=== PATIENT | female | born 1945 | race Caucasian/White ===

== ENCOUNTER 2023-01-16 07:35 | Emergency (ER) | payer MEDICARE, SELFPAY ==
[2023-01-16] VITALS (16 sets, daily range): BP systolic 123–158; BP diastolic 65–84; PULSE 75–78; RESP 16; TEMP 36.9; O2SAT 95–100
--- NOTE | ~2023-01-16 | CT_ITS ---
EXAMINATION: CT abdomen pelvis w con DATE: 01/16/2023 10:55 INDICATION: Left lower quadrant abdominal pain, nausea. Abdominal bloating. Diminished appetite. TECHNIQUE: Computed tomography (CT) of the abdomen and pelvis was performed with 100 CC Omnipaque 350 intravenous contrast. Automated exposure control and iterative reconstruction technique were employe d. Exam dose: 988.07 mGy-cm total exam DLP. COMPARISON: None. FINDINGS: Minimal discoid atelectasis at the base of the lingula and posteromedial right lower lobe. No infiltrate or consolidation at the lung bases. Normal heart size. No pericardial or pleural effusion. 13 x 18 mm circumscribed cystic lesion in the region of pancreatic head. The pancreas is otherwise un remarkable, without calcification or ductal dilatation. No bile duct dilatation. No hepatic or splenic space-occupying mass lesion or splenomegaly. Suspected cholelithiasis. Recommend ultrasound correlation. No gallbladder wall thickening or pericho lecystic fluid or fat stranding. Normal morphology of the adrenal glands. No renal mass lesion or urinary tract calculus or hydroureteronephrosis. The urinary bladder, uterus and adnexal areas are unremarkable. There is atherosclerotic calcification of the abdominal aorta but no aneurysm. No intraperitoneal or retroperitoneal or pelvic mass lesion or adenopathy or ascites. Normal appendix. There are numerous diverticula of the sigmoid colon; no CT evidence of diverticulitis. No bowel obstr uction, bowel wall thickening, pneumatosis or intraperitoneal free air. There are compression fracture deformities, likely chronic, T12, L1 and to a lesser extent L3. Degenerative changes of the lower thoracic and lumbar spine including severe degenerative disc diseas e at L4-5 and L5-S1. No suspicious osteolytic or osteoblastic lesions are noted. IMPRESSION: 13 x 18 mm circumscribed cyst at the pancreatic head, most likely benign. Consider [address] imaging Suspected cholelithiasis; consider gallbladder ultrasound examination Diverticulosis of the sigmoid colon; no evidence of diverticulitis Normal appendix Reviewed, dictated and finalized at [facility]. Reviewed, dictated and finalized at [facility]. IMPRESSION: 13 x 18 mm circumscribed cyst at the pancreatic head, most likely benign. Consider [address] imaging Suspected cholelithiasis; consider gallbladder ultrasound examination Diverticulosis of the sigmoid colon; no evidence of diverticulitis Normal appendix
[2023-01-16 08:35] LABS: Basophils Absolute Auto 0.1 K/mm3 (0.0-0.1); Basophils Percent Auto 0.6 % (0.2-1.2); Eosinophils Absolute Auto 0.2 K/mm3 (0-0.3); Eosinophils Percent Auto 1.8 % (0-4.4); Hematocrit 44.4 % (37.0-47.0); Hemoglobin 15.1 g/dL (12.0-15.0); Immature Granulocyte Absolute 0.06 K/mm3 (0.00-0.031); Immature Granulocyte Percent A 0.6 % (0-0.5); Lymphocytes Absolute Auto 1.93 K/mm3 (0.9-3.2); Lymphocytes Percent Auto 19.7 % (18.3-44.2); Mean Corpuscular Hemoglobin 32.1 pg (26-34); Mean Corpuscular Volume 94.5 fl (80-100); Mean Platelet Volume 11.8 fl (7.4-10.4); Monocytes Absolute Auto 0.7 K/mm3 (0.1-0.6); Monocytes Percent Auto 6.6 % (2.6-8.5); Neutrophils Absolute Auto 6.9 K/mm3 (1.3-6.7); Neutrophils Percent Auto 70.7 % (45.5-73.1); Platelet Count Result 175 k/mm3 (150-375); Red Cell Distribution Width 12.4 % (11.5-14.5); White Blood Count 9.8 K/mm3 (4.5-10.0)
[2023-01-16] MEDS: MAG HYDROX/AL HYDROX/SIMETH 30 ML UDC PO (08:36)
[2023-01-16] MEDS: ONDANSETRON INJ 4 MG/2 ML VIAL IV PUSH (08:36)
--- NOTE | 2023-01-16 08:54 | ED.GENADULT ---
HPI - General Adult General Chief complaint: Unspecified Stated complaint: Left hip pain Time Seen by Provider: 01/16/23 07:56 History of Present Illness HPI narrative: Patient with history of chronic left hip pain, diverticulosis, presents with several days of feeling of abdominal bloating and some left lower quadrant pain and hip pain. Was having enough pain that she was having difficulty walking so finally came in to get checked out. Also endorses some nausea. No fevers or chills. Related Data Allergies Allergy/AdvReac Type Severity Reaction Status Date / Time No Known Allergies Allergy Unverified 09/23/14 10:57 Review of Systems Review of Systems: CONST: No fever. HEENT: No sore throat C/V: No chest pain RESP: No cough GI: Reports abdominal pain, nausea, bloating : No dysuria. M/S: left hip pain. SKIN: No rash. NEURO: [No headache or focal numbness or weakness] PSYCH: [No depression] [facility] Past Medical History Medical History (Updated 01/16/23 @ 12:13 by Krysten Marshall MD) Diverticulosis Exam Narrative: EXAMINATION OF ORGAN SYSTEMS/BODY AREAS: Constitutional: Vital signs per nursing GENERAL:[No acute distress, non-toxic appearing.] HEAD: Normal with no signs of head trauma. EYES: EOMI, conjunctiva normal ENT: Hearing grossly intact LUNGS: Nonlabored breathing. HEART: [Regular rate and rhythm] ABD: [Soft], [minimally tender to deep palpation LLQ] EXT: Full ROM of L hip, no tenderness to palpation SKIN: [No rashes or lesions.] NEURO: [Alert and oriented x 3. No gross focal sensory or strength deficits.] PSYCH: Normal affect Course Vital Signs Vital signs: Vital Signs Temperature 98.4 F 01/16/23 07:57 Pulse Rate 75 01/16/23 07:57 Respiratory Rate 16 01/16/23 07:57 Blood Pressure 123/65 01/16/23 07:57 Pulse Oximetry 99 01/16/23 07:57 Temperature 98.4 F 01/16/23 07:57 Pulse Rate 78 01/16/23 12:15 Respiratory Rate 16 01/16/23 12:15 Blood Pressure 132/84 01/16/23 12:15 Pulse Oximetry 98 01/16/23 12:15 Medical Decision Making [facility] Narrative Medical decision making narrative: Electronic medical record was reviewed. Patient presented to the ED with complaint of [L hip pain and nausea]. Vitals [were within acceptable limits]. Physical exam revealed [tenderness to deep palpation in LLQ, full ROM of L hip without severe pain]. Based on the patient's history and physical exam, my differential includes but is not limited to [gastritis/gastroenteritis, cholecystitis, pancreatitis, diverticulitis; doubt septic joint with normal ROM and no fevers]. [IV access was established by nursing staff. Patient was given Maalox, zofran]. CBC, BMP, lipase, LFTs, bilirubin and alk phos were obtained. Labs were pertinent for labs within acceptable limits other than small amount of RBCs in urine. [Decision was made to obtain a CT-abdomen to evaluate for acute abdominal process. CT-abdomen is unremarkable for acute intra-abdominal process, there is a small cyst on pancreas and cholelithiasis with no signs of hydronephrosis, cholecystitis, appendicitis.] Findings discussed with patient/family as well as need to followup regarding the pancreas cyst and cholelithiasis. On reevaluation, the patient states that they are feeling better. There were no witnessed episodes of vomiting in the emergency department. They are not complaining of any new abdominal pain. Repeat examination did not show any significant guarding or rebound. No new tenderness. At this time I do not feel there is any further emergent treatment to be provided. The patient was given strict return precautions, if they are to develop any worsening abdominal pain, vomiting, or blood in the vomit they are to return to the emergency department immediately. Patient verbally acknowledges understanding these directions. They will be discharged home [with prescriptions] and instructions on diet. They were advised to follow-up with [their PCP] in
[2023-01-16 09:42] LABS: Alanine Aminotransferase 33 U/L (6-35); Albumin Level 4.2 g/dL (3.5-5.1); Alkaline Phosphatase 56 U/L (38-126); Anion Gap 8 mmol/L (8-16); Aspartate Amino Transferase 33 U/L (14-36); Bilirubin,Total 0.7 mg/dL (0.2-1.3); Blood Urea Nitrogen 17 mg/dL (7-17); Calcium 8.9 mg/dL (8.4-10.2); Carbon Dioxide 25 mmol/L (22-30); Chloride 100 mmol/L (98-107); Estimated Glomerular Filt Rate > 60; Glucose 217 mg/dL (65-110); Lipase 18 U/L (23-300); Potassium 3.9 mmol/L (3.4-5.0); Sodium 133 mmol/L (137-145)
[2023-01-16 10:00] LABS: Appearance Urine Cloudy (Clear); Bacteria Urine Rare /hpf; Bilirubin Urine Negative (Negative); Blood Urine Trace (Negative); Color Urine Yellow (Yellow); Glucose Urine UA Negative (Negative); Ketones Urine Negative (Negative); Leukocyte Esterase Ur Negative LEU/UL (Negative); Nitrate Urine Negative (Negative); Non Pathogenic Casts 0-2; Protein Urine Negative (Negative); Specific Grav Ur 1.007 (1.001-1.035); Squamous Epithelial Cell Urine Moderate /hpf (Few); Urobilinogen Urine 0.2 mg/dL (<2.0); WBC Urine 0-5 /hpf; pH Urine 7.5 (5.0-9.0)
[2023-01-16 10:32] LABS: Add Urine Microscopic? YES
== END 2023-01-16 12:33 | disposition home or self-care (01) ==
PROVIDERS: Emergency Provider Emergency Medicine
DX: R11.0 Nausea (principal); M25.552 Pain in left hip; G89.29 Other chronic pain
CPT/HCPCS: 36415; 74177; 80053; 81001; 83690; 85025; 96374; 99284; A9270; J2405; Q9967